=== PATIENT | female | born 1995 | race African-American/Black ===

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

== ENCOUNTER 2017-01-03 17:36 | Emergency (ER) | payer MEDICAID ==
[~2017-01-03] VITALS: Ht 157.5 cm; Wt 49.0 kg
[2017-01-04 00:54] VITALS: BP 93/51
== END 2017-01-04 00:55 | disposition home or self-care (01) ==
LOC: ER 17:45
DX: J45.909 Unspecified asthma, uncomplicated (principal); F17.290 Nicotine dependence, other tobacco product, uncomplicated
CPT/HCPCS: 81025; 99283